=== PATIENT | male | born 1960 | race African-American/Black ===

== ENCOUNTER 2019-09-18 23:43 | Emergency (ER) | payer BC ==
[2019-09-19] MEDS ORDERED: Famotidine 20 MG TAB ONE (02:10)
[2019-09-19] MEDS ORDERED: hydrOXYzine Pamoate 25 mg Capsule ONE (02:10)
[2019-09-19] MEDS ORDERED: predniSONE 20 MG TAB ONE (02:10)
== END 2019-09-19 02:15 | disposition home or self-care (01) ==
LOC: ERS 23:43
DX: L50.0 Allergic urticaria (principal)
CPT/HCPCS: 99282; J7512; Q0177

== ENCOUNTER 2020-10-02 15:13 | Outpatient (CLI) | payer BC | END 2020-10-02 15:14 | disposition home or self-care (01) | LOC: ULT 15:13 | PROVIDERS: ATTEND Orthopaedic Surgery Foot and Ankle Surgery | DX: M79.661 Pain in right lower leg (principal); M79.662 Pain in left lower leg | CPT/HCPCS: 93970 ==